=== PATIENT | female | born 1945 | race African-American/Black ===

== ENCOUNTER 2016-10-21 09:47 | Inpatient (IN) | payer MEDICAID, MEDICARE ==
[~2016-10-21] VITALS: Ht 170.2 cm; Wt 62.6 kg
[2016-10-21] VITALS (46 sets, daily range): BP systolic 75–140; BP diastolic 39–102
[~2016-10-21 09:47] MED LIST: AMIN30LI25 PO; AMLO10TA4 PO; ATOR10TA PO; CLON0.3P TD; CLOP75TA2 PO; DIVA500T2 PO; DOCU250C75 PO; FAMO20TA8 PO; GABA-532 PO; HYDR12.5 PO; MAGN400T6 PO; METF500T7 PO; METO50TA3 PO; MIRT15TA PO; NITR1OIN2 TD; POTA10CA43 PO; PSYL1PAC8 PO; VALS40TA4 PO
[2016-10-21 10:08] LABS: BASOPHILS % (AUTO) 0.6 % (0.0-2.0); DIFF TOTAL % 100 %; EOSINOPHILS # (AUTO) 0.1 /CMM (0.0-0.7); HEMATOCRIT 37 % (33-45); HEMOGLOBIN 12.1 g/dL (11.5-14.8); LYMPHOCYTES # (AUTO) 1.9 /CMM (0.8-4.8); LYMPHOCYTES % (AUTO) 49.3 % (20.0-44.0); MEAN CORPUSCULAR HEMOGLOBIN 27 PG (26.0-33.0); MEAN CORPUSCULAR HGB CONC 33 g/dl (31.0-36.0); MEAN CORPUSCULAR VOLUME 84 fL (82-100); MONOCYTES # (AUTO) 0.3 /CMM (0.1-1.30); MONOCYTES % (AUTO) 8.5 % (2.0-12.0); NEUTROPHILS # (AUTO) 1.6 /CMM (1.8-8.9); NEUTROPHILS % (AUTO) 39.6 % (43.0-81.0); PLATELET COUNT (AUTO) 194 /CMM (150-450); RED BLOOD CELL COUNT(AUTO) 4.42 MIL/uL (4.0-5.2); WHITE BLOOD COUNT (AUTO) 3.9 K/uL (4.3-11.0)
[2016-10-21] MEDS ORDERED: DOCU100T2 PO (10:08)
[2016-10-21] MEDS ORDERED: ZOLP5TAB2 PO (10:08)
[2016-10-21] MEDS ORDERED: MAG30ORA PO (10:08)
[2016-10-21] MEDS ORDERED: MAGN400O6 PO (10:08)
[2016-10-21] MEDS ORDERED: ALBU2.5V12 NEB (10:08)
[2016-10-21] MEDS ORDERED: DIVA125C PO (10:08)
[2016-10-21] MEDS ORDERED: ONDA4TAB5 PO (10:08)
[2016-10-21] MEDS ORDERED: LACT10SO PO (10:08)
[2016-10-21] MEDS ORDERED: BISA5TAB10 PO (10:08)
[2016-10-21] MEDS ORDERED: IPRA0.2S49 NEB (10:08)
[2016-10-21] MEDS ORDERED: RISP0.5T20 PO (10:08)
[2016-10-21] MEDS ORDERED: ACET-868 PO (10:08)
[2016-10-21] MEDS ORDERED: PALI234D IM (10:08)
[2016-10-21] MEDS ORDERED: BISA10SU8 RC (10:08)
[2016-10-21] MEDS ORDERED: CHOL10002 PO (10:08)
[2016-10-21] MEDS ORDERED: AMLO5TAB2 PO (10:08)
[2016-10-21] MEDS ORDERED: POLY17PO4 PO (10:08)
[2016-10-21] MEDS ORDERED: NA P133E RC (10:08)
[2016-10-21 10:15] LABS: CALCIUM, SERUM 9.1 mg/dL (8.5-10.1); CREATININE 0.8 mg/dL (0.6-1.3); POTASSIUM 4.8 mmol/L (3.5-5.1)
[2016-10-21 10:22] LABS: BILIRUBIN,TOTAL 0.3 mg/dL (0.2-1.0); INDIRECT BILIRUBIN 0.3 mg/dL (0.0-1.1); TOTAL PROTEIN, SERUM 7.4 g/dL (6.4-8.2)
[2016-10-21 10:23] LABS: TROPONIN I 0.108 ng/mL (0.00-0.056)
[2016-10-21 10:27] LABS: KETONES,URINE 15 (NEGATIVE); LEUKOCYTE ESTERASE ,URINE Small (NEGATIVE)
[2016-10-21 10:30] LABS: LACTIC ACID 1.8 mmol/L (0.4-2.0)
[2016-10-21 10:30] LABS: ADD UA MICROSCOPIC YES
[2016-10-21 10:33] LABS: ADD URINE CULTURE YES
[2016-10-21 10:40] LABS: INR 1.05 (0.87-1.13)
[2016-10-21] MEDS ORDERED: NITROGLYCERIN PACKET 1 GM PACKET ONE (10:59)
[2016-10-21] MEDS ORDERED: FUROSEMIDE 20 MG/2 ML VIAL ONE (10:59)
[2016-10-21] MEDS ORDERED: NITROGLYCERIN PACKET 1 GM PACKET TD ONE (11:00)
[2016-10-21] MEDS ORDERED: FUROSEMIDE 40 MG/4 ML VIAL IV ONE (11:00)
[2016-10-21 11:06] LABS: ABG BASE EXCESS 6.5 mmol/L; ABG HCO3 33.3 mmol/L; ABG PCO2 58.3 mmHg (35.0-45.0); ABG PH 7.375 (7.350-7.450); ABG TOTAL HEMOGLOBIN 12.7 G/dL (12.0-16.0); ALLEN TEST Pass; AaDO2 159.2 mmHg; O2Hb 87.3 % (94.0-97.0)
[2016-10-21] MEDS ORDERED: ONDANSETRON 4 MG TAB.RAPDIS PO PRN (11:30)
[2016-10-21] MEDS ORDERED: IPRATROPIUM NEB FS 0.5 MG/2.5 ML AMPUL.NEB NEB PRN (11:30)
[2016-10-21] MEDS ORDERED: MAGNESIUM HYDROXIDE 30 ML UDC PO PRN ×2 (11:30→16:00)
[2016-10-21] MEDS ORDERED: MAG HYDROX/AL HYDROX/SIMETH 30 ML UDC PO PRN ×2 (11:30→16:00)
[2016-10-21] MEDS ORDERED: CEFTRIAXONE 1GM BAG (ER ONLY) 1 GM/50 ML PIGGYBACK IV ONE (11:30)
[2016-10-21] MEDS ORDERED: ACETAMINOPHEN 325 MG TABLET PO PRN (11:30)
[2016-10-21] MEDS ORDERED: NA PHOS,M-B/NA PHOS,DI-BA 1 EA ENEMA RC PRN (11:30)
[2016-10-21] MEDS ORDERED: BISACODYL SUPP (10 MG) 10 MG/SUPP.RECT SUPP.RECT RC PRN (11:30)
[2016-10-21] MEDS ORDERED: CEFTRIAXONE 1GM BAG (ER ONLY) 50 ML IV ONE (11:40)
[2016-10-21] MEDS ORDERED: IV SET PRIMARY PUMP SET 1 EA INFUS.SET MC ONE ×2 (11:40→14:44)
[2016-10-21] MEDS ORDERED: LACTULOSE 10 G/15 ML UDC (PYXIS) PO PRN (12:00)
[2016-10-21] MEDS ORDERED: NITROGLYCERIN PACKET 1 GM PACKET TOP SCH (13:00)
[2016-10-21] MEDS: ALBUTEROL FS 2.5 MG/0.5 ML VIAL.NEB NEB SCH ×2 (14:23→20:08)
[2016-10-21] MEDS ORDERED: IV NS 0.9% 1,000 ML BAG IV PRN ×2 (14:30→15:00)
[2016-10-21] MEDS ORDERED: IV NS 0.9% 1,000 ML ONE (14:41)
[2016-10-21] MEDS ORDERED: SECONDARY IV SET 1 EA INFUS.SET MC ONE (14:45)
[2016-10-21] MEDS ORDERED: IV NS 0.9% 250 ML IV PRN (15:00)
[2016-10-21] MEDS ORDERED: IV NS 0.9% 500 ML IV ONE (15:00)
[2016-10-21] MEDS: IPRATROPIUM NEB FS 0.5 MG/2.5 ML AMPUL.NEB NEB SCH ×2 (15:00→20:09)
[2016-10-21] MEDS: ALBUTEROL HALF STRENGTH 1.25 MG/3 ML VIAL.NEB NEB SCH ×2 (15:00→19:30)
[2016-10-21 15:31] LABS: ABG BASE EXCESS 10.6 mmol/L; ABG HCO3 38.8 mmol/L; ABG PCO2 72.9 mmHg (35.0-45.0); ABG PH 7.344 (7.350-7.450); ABG PO2 88.2 mmHg (75.0-100.0); ABG TOTAL HEMOGLOBIN 11.7 G/dL (12.0-16.0); ALLEN TEST Pass; AaDO2 208.2 mmHg; O2Hb 92.8 % (94.0-97.0)
[2016-10-21] MEDS ORDERED: ONDANSETRON HCL/PF 4 MG/2 ML VIAL IVP PRN (16:00)
[2016-10-21] MEDS ORDERED: Z GUARD REMEDY 2 OZ OINT TP PRN (16:00)
[2016-10-21] MEDS ORDERED: HYDROCODONE/APAP 5/325MG 1 EACH TABLET PO PRN (16:00)
[2016-10-21] MEDS ORDERED: risperiDONE 0.25 MG TABLET PO SCH (17:00)
[2016-10-21] MEDS ORDERED: DOCUSATE SODIUM 100 MG CAPSULE PO SCH (17:00)
[2016-10-21] MEDS ORDERED: METOPROLOL TARTRATE 50 MG TABLET PO SCH (17:00)
[2016-10-21] MEDS: DIVALPROEX SODIUM 125 MG CAP.SPRINK PO SCH ×2 (17:00→17:33)
[2016-10-21] MEDS: methylPREDNISolone SOD SUCC 125 MG/2ML VIAL IV SCH (17:08)
[2016-10-21] MEDS: ENOXAPARIN SODIUM 40 MG/0.4 ML DISP.SYRIN SQ SCH (17:08)
[2016-10-21] MEDS ORDERED: LABETALOL HCL IV 100MG VIAL IV PRN (18:00)
[2016-10-21] MEDS ORDERED: ACETAMINOPHEN 650 MG/SUPP.RECT RC PRN (18:00)
[2016-10-21] MEDS ORDERED: IV NS 0.9% 250 ML IV ONE (20:17)
[2016-10-21] MEDS: FUROSEMIDE 40 MG/4 ML VIAL IV SCH (20:23)
[2016-10-21] MEDS: FAMOTIDINE/PF INJ 20 MG/2 ML VIAL IV SCH (20:23)
[2016-10-21] MEDS ORDERED: ATORVASTATIN 10 MG TABLET PO SCH (22:00)
[2016-10-21] MEDS ORDERED: MIRTAZAPINE 15 MG TABLET PO SCH (22:00)
[2016-10-21] MEDS ORDERED: FAMOTIDINE (20 MG) 20 MG TABLET PO SCH (22:00)
[2016-10-21] MEDS ORDERED: ZOLPIDEM TARTRATE 5 MG TABLET PO SCH (22:00)
[2016-10-21] MEDS ORDERED: GABAPENTIN 100 MG CAPSULE PO SCH (22:00)
[2016-10-22] VITALS (47 sets, daily range): BP systolic 80–148; BP diastolic 46–91
[2016-10-22] MEDS: ALBUTEROL HALF STRENGTH 1.25 MG/3 ML VIAL.NEB NEB SCH ×4 (01:30→20:06)
[2016-10-22] MEDS: ALBUTEROL FS 2.5 MG/0.5 ML VIAL.NEB NEB SCH ×4 (02:29→19:30)
[2016-10-22] MEDS: IPRATROPIUM NEB FS 0.5 MG/2.5 ML AMPUL.NEB NEB SCH ×4 (02:30→20:06)
[2016-10-22 04:52] LABS: BASOPHILS % (AUTO) 0.1 % (0.0-2.0); DIFF TOTAL % 100 %; HEMATOCRIT 36 % (33-45); HEMOGLOBIN 11.6 g/dL (11.5-14.8); LYMPHOCYTES # (AUTO) 0.8 /CMM (0.8-4.8); LYMPHOCYTES % (AUTO) 11.4 % (20.0-44.0); MEAN CORPUSCULAR HEMOGLOBIN 27 PG (26.0-33.0); MEAN CORPUSCULAR HGB CONC 32 g/dl (31.0-36.0); MEAN CORPUSCULAR VOLUME 85 fL (82-100); MONOCYTES # (AUTO) 0.1 /CMM (0.1-1.30); MONOCYTES % (AUTO) 1.4 % (2.0-12.0); NEUTROPHILS # (AUTO) 6.1 /CMM (1.8-8.9); NEUTROPHILS % (AUTO) 87.1 % (43.0-81.0); PLATELET COUNT (AUTO) 223 /CMM (150-450); WHITE BLOOD COUNT (AUTO) 7.1 K/uL (4.3-11.0)
[2016-10-22 05:20] LABS: CALCIUM, SERUM 8.9 mg/dL (8.5-10.1); CREATININE 1.6 mg/dL (0.6-1.3); PHOSPHORUS 5.6 mg/dL (2.5-4.9); POTASSIUM 4.5 mmol/L (3.5-5.1)
[2016-10-22] MEDS: FUROSEMIDE 40 MG/4 ML VIAL IV SCH (08:03)
[2016-10-22] MEDS: methylPREDNISolone SOD SUCC 125 MG/2ML VIAL IV SCH (08:03)
[2016-10-22] MEDS ORDERED: CHOLECALCIFEROL 1,000 UNIT TABLET (VIT D3) PO SCH (09:00)
[2016-10-22] MEDS ORDERED: BISACODYL (5 MG) 5 MG TABLET.DR PO SCH (09:00)
[2016-10-22] MEDS ORDERED: MAGNESIUM OXIDE 400 MG TABLET PO SCH (09:00)
[2016-10-22] MEDS ORDERED: ASPIRIN 325 MG TABLET PO SCH (09:00)
[2016-10-22] MEDS ORDERED: CLOPIDOGREL BISULFATE 75 MG TABLET PO SCH (09:00)
[2016-10-22] MEDS ORDERED: AMLODIPINE BESYLATE 5 MG TABLET PO SCH (09:00)
[2016-10-22] MEDS ORDERED: POLYETHYLENE GLYCOL 3350 17 GM POWD.PACK PO SCH (09:00)
[2016-10-22] MEDS ORDERED: SECONDARY IV SET 1 EA INFUS.SET MC ONE (09:37)
[2016-10-22] MEDS: Magnesium 1GM/D5W 100ML PREMIX 100 ML IV SCH ×4 (09:40→13:28)
[2016-10-22] MEDS: CEFTRIAXONE 1 G in IV D5W 50 ML IV SCH (10:38)
[2016-10-22] MEDS: IV NS 0.9% 1,000 ML IV PRN (13:59)
[2016-10-22] MEDS ORDERED: Magnesium 1GM/D5W 100ML PREMIX 100 ML IV SCH (14:00)
[2016-10-22] MEDS ORDERED: IV NS 0.9% 1,000 ML BAG IV PRN (14:00)
[2016-10-22] MEDS: FAMOTIDINE/PF INJ 20 MG/2 ML VIAL IV SCH (20:25)
[2016-10-22] MEDS: ENOXAPARIN SODIUM 40 MG/0.4 ML DISP.SYRIN SQ SCH (20:25)
[2016-10-23] VITALS (26 sets, daily range): BP systolic 100–181; BP diastolic 55–100
[2016-10-23] MEDS: ALBUTEROL FS 2.5 MG/0.5 ML VIAL.NEB NEB SCH ×4 (01:29→19:30)
[2016-10-23] MEDS: ALBUTEROL HALF STRENGTH 1.25 MG/3 ML VIAL.NEB NEB SCH ×4 (01:29→19:48)
[2016-10-23] MEDS: IPRATROPIUM NEB FS 0.5 MG/2.5 ML AMPUL.NEB NEB SCH ×4 (01:29→19:48)
[2016-10-23] MEDS: IV NS 0.9% 1,000 ML IV PRN ×2 (05:04→18:11)
[2016-10-23] MEDS: methylPREDNISolone SOD SUCC 125 MG/2ML VIAL IV SCH (08:36)
[2016-10-23] MEDS: CEFTRIAXONE 1 G in IV D5W 50 ML IV SCH (10:01)
[2016-10-23] MEDS: FAMOTIDINE/PF INJ 20 MG/2 ML VIAL IV SCH (20:10)
[2016-10-23] MEDS: ENOXAPARIN SODIUM 40 MG/0.4 ML DISP.SYRIN SQ SCH (20:10)
[2016-10-24] VITALS (21 sets, daily range): BP systolic 143–177; BP diastolic 81–138
[2016-10-24] MEDS: ALBUTEROL FS 2.5 MG/0.5 ML VIAL.NEB NEB SCH ×4 (01:30→20:00)
[2016-10-24] MEDS: ALBUTEROL HALF STRENGTH 1.25 MG/3 ML VIAL.NEB NEB SCH ×4 (01:41→20:12)
[2016-10-24] MEDS: IPRATROPIUM NEB FS 0.5 MG/2.5 ML AMPUL.NEB NEB SCH ×4 (01:41→20:00)
[2016-10-24 05:05] LABS: BASOPHILS % (AUTO) 0.1 % (0.0-2.0); DIFF TOTAL % 100 %; EOSINOPHILS % (AUTO) 0.3 % (0.0-6.0); HEMATOCRIT 36 % (33-45); LYMPHOCYTES # (AUTO) 2.1 /CMM (0.8-4.8); MEAN CORPUSCULAR HEMOGLOBIN 27 PG (26.0-33.0); MEAN CORPUSCULAR HGB CONC 31 g/dl (31.0-36.0); MEAN CORPUSCULAR VOLUME 86 fL (82-100); MONOCYTES # (AUTO) 0.7 /CMM (0.1-1.30); MONOCYTES % (AUTO) 7.3 % (2.0-12.0); NEUTROPHILS # (AUTO) 6.4 /CMM (1.8-8.9); NEUTROPHILS % (AUTO) 69.3 % (43.0-81.0); PLATELET COUNT (AUTO) 205 /CMM (150-450); RED BLOOD CELL COUNT(AUTO) 4.15 MIL/uL (4.0-5.2); WHITE BLOOD COUNT (AUTO) 9.3 K/uL (4.3-11.0)
[2016-10-24 05:11] LABS: CALCIUM, SERUM 8.8 mg/dL (8.5-10.1); POTASSIUM 4.1 mmol/L (3.5-5.1)
[2016-10-24] MEDS ORDERED: IV SET PRIMARY PUMP SET 1 EA INFUS.SET MC ONE (05:44)
[2016-10-24] MEDS: IV NS 0.9% 1,000 ML IV PRN ×2 (05:50→20:03)
[2016-10-24] MEDS: methylPREDNISolone SOD SUCC 125 MG/2ML VIAL IV SCH (09:31)
[2016-10-24] MEDS: CEFTRIAXONE 1 G in IV D5W 50 ML IV SCH (09:31)
[2016-10-24] MEDS ORDERED: CLONIDINE HCL 0.3 MG/24H PTWK 1 EA PATCH TD SCH (11:30)
[2016-10-24] MEDS: AZITHROMYCIN 500 MG in IV D5W 250 ML IV SCH (20:02)
[2016-10-24] MEDS: ENOXAPARIN SODIUM 40 MG/0.4 ML DISP.SYRIN SQ SCH (20:05)
[2016-10-24] MEDS: FAMOTIDINE/PF INJ 20 MG/2 ML VIAL IV SCH (20:25)
[2016-10-25] VITALS (8 sets, daily range): BP systolic 134–165; BP diastolic 69–94
[2016-10-25] MEDS: ALBUTEROL FS 2.5 MG/0.5 ML VIAL.NEB NEB SCH ×2 (01:30→20:06)
[2016-10-25] MEDS: IPRATROPIUM NEB FS 0.5 MG/2.5 ML AMPUL.NEB NEB SCH ×4 (01:30→20:06)
[2016-10-25] MEDS: ALBUTEROL HALF STRENGTH 1.25 MG/3 ML VIAL.NEB NEB SCH ×3 (01:30→12:39)
[2016-10-25] MEDS: CEFTRIAXONE 1 G in IV D5W 50 ML IV SCH (10:37)
[2016-10-25] MEDS: methylPREDNISolone SOD SUCC 125 MG/2ML VIAL IV SCH (10:37)
[2016-10-25] MEDS ORDERED: SECONDARY IV SET 1 EA INFUS.SET MC ONE (10:38)
[2016-10-25 17:53] LABS: ABG BASE EXCESS 7.6 mmol/L; ABG HCO3 34.3 mmol/L; ABG PCO2 58.7 mmHg (35.0-45.0); ABG PH 7.385 (7.350-7.450); ABG PO2 91.5 mmHg (75.0-100.0); ALLEN TEST Pass; AaDO2 53.4 mmHg; O2Hb 94.3 % (94.0-97.0)
[2016-10-25 18:58] LABS: BASOPHILS % (AUTO) 0.1 % (0.0-2.0); DIFF TOTAL % 100 %; HEMATOCRIT 36 % (33-45); HEMOGLOBIN 11.6 g/dL (11.5-14.8); LYMPHOCYTES # (AUTO) 0.6 /CMM (0.8-4.8); LYMPHOCYTES % (AUTO) 12.5 % (20.0-44.0); MEAN CORPUSCULAR HEMOGLOBIN 27 PG (26.0-33.0); MEAN CORPUSCULAR HGB CONC 32 g/dl (31.0-36.0); MEAN CORPUSCULAR VOLUME 84 fL (82-100); MONOCYTES # (AUTO) 0.1 /CMM (0.1-1.30); MONOCYTES % (AUTO) 1.6 % (2.0-12.0); NEUTROPHILS # (AUTO) 4.3 /CMM (1.8-8.9); NEUTROPHILS % (AUTO) 85.8 % (43.0-81.0); PLATELET COUNT (AUTO) 188 /CMM (150-450)
[2016-10-25 19:23] LABS: ALBUMIN 2.9 g/dL (3.4-5.0); BILIRUBIN,TOTAL 0.2 mg/dL (0.2-1.0); CALCIUM, SERUM 8.8 mg/dL (8.5-10.1); CREATININE 0.9 mg/dL (0.6-1.3); POTASSIUM 4.7 mmol/L (3.5-5.1); TOTAL PROTEIN, SERUM 7.1 g/dL (6.4-8.2)
[2016-10-25 19:44] LABS: LACTIC ACID 0.9 mmol/L (0.4-2.0)
[2016-10-25] MEDS: AZITHROMYCIN 500 MG in IV D5W 250 ML IV SCH (20:56)
[2016-10-25] MEDS: FAMOTIDINE/PF INJ 20 MG/2 ML VIAL IV SCH (20:57)
[2016-10-25] MEDS: ENOXAPARIN SODIUM 40 MG/0.4 ML DISP.SYRIN SQ SCH (20:58)
[2016-10-26] VITALS: BP_SYST 156; BP_DIAS 100; BP_DIAS 90
[2016-10-26] MEDS: ALBUTEROL FS 2.5 MG/0.5 ML VIAL.NEB NEB SCH ×3 (01:44→13:30)
[2016-10-26] MEDS: IPRATROPIUM NEB FS 0.5 MG/2.5 ML AMPUL.NEB NEB SCH ×4 (01:44→20:28)
[2016-10-26 04:00] VITALS: BP_SYST 154; BP_SYST 155; BP_DIAS 101; BP_DIAS 87
[2016-10-26 08:00] VITALS: BP 172/89
[2016-10-26] MEDS: ALBUTEROL HALF STRENGTH 1.25 MG/3 ML VIAL.NEB NEB SCH ×3 (08:25→20:28)
[2016-10-26] MEDS: methylPREDNISolone SOD SUCC 125 MG/2ML VIAL IV SCH (09:00)
[2016-10-26] MEDS: CEFTRIAXONE 1 G in IV D5W 50 ML IV SCH (11:16)
[2016-10-26 12:00] VITALS: BP 143/79
[2016-10-26 16:00] VITALS: BP 149/82
[2016-10-26] MEDS ORDERED: DEXTROSE 50%-WATER 50 ML DISP.SYRIN IV PRN (17:00)
[2016-10-26] MEDS ORDERED: CLONIDINE HCL 0.1MG/24H PTWK 1 EA PATCH TD SCH (17:00)
[2016-10-26] MEDS: BLOOD SUGAR DIAGNOSTIC 1 EACH STRIP IN SCH ×2 (18:01→23:00)
[2016-10-26] MEDS: INSULIN ASPART NOVOLOG 100 UNIT/ML CARTRIDGE SQ PRN ×2 (18:46→23:04)
[2016-10-26 20:00] VITALS: BP 137/79
[2016-10-26] MEDS: AZITHROMYCIN 500 MG in IV D5W 250 ML IV SCH (21:01)
[2016-10-26] MEDS: FAMOTIDINE/PF INJ 20 MG/2 ML VIAL IV SCH (21:03)
[2016-10-26] MEDS: ENOXAPARIN SODIUM 40 MG/0.4 ML DISP.SYRIN SQ SCH (21:13)
[2016-10-27] VITALS: BP_SYST 166; BP_SYST 171; BP_DIAS 88; BP_DIAS 94
[2016-10-27] MEDS: ALBUTEROL HALF STRENGTH 1.25 MG/3 ML VIAL.NEB NEB SCH ×4 (02:27→19:29)
[2016-10-27] MEDS: IPRATROPIUM NEB FS 0.5 MG/2.5 ML AMPUL.NEB NEB SCH ×4 (02:27→19:28)
[2016-10-27 04:00] VITALS: BP 125/83
[2016-10-27] MEDS ORDERED: IV NS 0.9% 250 ML IV ONE (04:38)
[2016-10-27] MEDS ORDERED: IV NS 0.9% 250 ML IV PRN (05:00)
[2016-10-27] MEDS: BLOOD SUGAR DIAGNOSTIC 1 EACH STRIP IN SCH ×4 (05:32→22:13)
[2016-10-27 08:00] VITALS: BP 143/79
[2016-10-27] MEDS: methylPREDNISolone SOD SUCC 125 MG/2ML VIAL IV SCH (08:36)
[2016-10-27] MEDS: CEFTRIAXONE 1 G in IV D5W 50 ML IV SCH (11:11)
[2016-10-27] MEDS: INSULIN ASPART NOVOLOG 100 UNIT/ML CARTRIDGE SQ PRN ×2 (11:42→22:15)
[2016-10-27 16:00] VITALS: BP 145/70
[2016-10-27 20:00] VITALS: BP 170/98
[2016-10-27] MEDS: AZITHROMYCIN 500 MG in IV D5W 250 ML IV SCH (20:15)
[2016-10-27] MEDS: FAMOTIDINE/PF INJ 20 MG/2 ML VIAL IV SCH (20:15)
[2016-10-27] MEDS ORDERED: CLONIDINE HCL 0.1MG/24H PTWK 1 EA PATCH TD ONE (20:18)
[2016-10-27] MEDS: ENOXAPARIN SODIUM 40 MG/0.4 ML DISP.SYRIN SQ SCH (20:26)
[2016-10-27] MEDS ORDERED: CLONIDINE HCL 0.1MG/24H PTWK 1 EA PATCH TD SCH (20:30)
[2016-10-28] MEDS: ALBUTEROL HALF STRENGTH 1.25 MG/3 ML VIAL.NEB NEB SCH ×4 (01:03→20:16)
[2016-10-28] MEDS: IPRATROPIUM NEB FS 0.5 MG/2.5 ML AMPUL.NEB NEB SCH ×4 (01:03→20:16)
[2016-10-28] MEDS: BLOOD SUGAR DIAGNOSTIC 1 EACH STRIP IN SCH ×4 (07:30→22:03)
[2016-10-28 08:00] VITALS: BP 166/96
[2016-10-28] MEDS: methylPREDNISolone SOD SUCC 125 MG/2ML VIAL IV SCH (08:23)
[2016-10-28] MEDS: CEFTRIAXONE 1 G in IV D5W 50 ML IV SCH (10:07)
[2016-10-28] MEDS: INSULIN ASPART NOVOLOG 100 UNIT/ML CARTRIDGE SQ PRN ×2 (17:18→22:07)
[2016-10-28 20:00] VITALS: BP 135/77
[2016-10-28] MEDS ORDERED: SECONDARY IV SET 1 EA INFUS.SET MC ONE (20:19)
[2016-10-28] MEDS: AZITHROMYCIN 500 MG in IV D5W 250 ML IV SCH (20:24)
[2016-10-28] MEDS: FAMOTIDINE/PF INJ 20 MG/2 ML VIAL IV SCH (20:25)
[2016-10-28] MEDS: ENOXAPARIN SODIUM 40 MG/0.4 ML DISP.SYRIN SQ SCH (20:31)
[2016-10-28] MEDS ORDERED: IV NS 0.9% 250 ML IV ONE (20:42)
[2016-10-28] MEDS ORDERED: IV SET PRIMARY PUMP SET 1 EA INFUS.SET MC ONE (20:42)
[2016-10-28 22:17] VITALS: BP 120/70
[2016-10-29] MEDS: IPRATROPIUM NEB FS 0.5 MG/2.5 ML AMPUL.NEB NEB SCH ×3 (00:21→13:18)
[2016-10-29] MEDS: ALBUTEROL HALF STRENGTH 1.25 MG/3 ML VIAL.NEB NEB SCH ×3 (00:21→13:18)
[2016-10-29] MEDS: BLOOD SUGAR DIAGNOSTIC 1 EACH STRIP IN SCH ×2 (06:31→11:55)
[2016-10-29 08:00] VITALS: BP 138/73
[2016-10-29 08:21] VITALS: BP 138/73
[2016-10-29] MEDS ORDERED: methylPREDNISolone SOD SUCC 125 MG/2ML VIAL IV SCH (09:00)
[2016-10-29] MEDS ORDERED: IV NS 0.9% 250 ML IV ONE (10:52)
[2016-10-29] MEDS: CEFTRIAXONE 1 G in IV D5W 50 ML IV SCH (10:57)
[2016-10-29] MEDS: INSULIN ASPART NOVOLOG 100 UNIT/ML CARTRIDGE SQ PRN (11:56)
[2016-10-29 16:00] VITALS: BP 151/71
[2016-10-29 16:18] VITALS: BP 151/71
== END 2016-10-29 16:56 | DRG 871 ==
LOC: ER 09:49 → ICU 12:12 → TELE1 10-24 11:57 → MEDSG1 10-27 11:24 → MED 10-28 21:59
PROVIDERS: ADMIT Internal Medicine; ATTEND Internal Medicine
DX: A41.9 Sepsis, unspecified organism (principal); J69.0 Pneumonitis due to inhalation of food and vomit; I21.4 Non-ST elevation (NSTEMI) myocardial infarction; G92 Toxic encephalopathy; I50.33 Acute on chronic diastolic (congestive) heart failure; J96.21 Acute and chronic respiratory failure with hypoxia; J96.22 Acute and chronic respiratory failure with hypercapnia; R65.21 Severe sepsis with septic shock; F32.3 Major depressive disorder, single episode, severe with psychotic features; E44.0 Moderate protein-calorie malnutrition; N17.9 Acute kidney failure, unspecified; I25.10 Atherosclerotic heart disease of native coronary artery without angina pectoris; J44.9 Chronic obstructive pulmonary disease, unspecified; I10 Essential (primary) hypertension; F02.80 Dementia in other diseases classified elsewhere, unspecified severity, without behavioral disturbance, psychotic disturbance, mood disturbance, and anxiety; E11.65 Type 2 diabetes mellitus with hyperglycemia; Z68.21 Body mass index [BMI] 21.0-21.9, adult; T38.0X5A Adverse effect of glucocorticoids and synthetic analogues, initial encounter; J06.9 Acute upper respiratory infection, unspecified
CPT/HCPCS: 31720; 36415; 36600; 70450-TC; 71010-TC; 80048-TC; 80053-TC; 80061-TC; 80076-TC; 81000-TC; 82140-TC; 82533; 82962-TC; 83605-TC; 83735-TC; 84100-TC; 84443-TC; 84484-TC; 85025-TC; 85730-TC; 87040-TC; 87081-TC; 87086-TC; 92611-TC; 93307-TC; 94003-TC; 94760-TC; 94799-TC; A4606; J0456; J0696; J1650; J1815; J1940; J2930; J3475; J3490; J7030; J7050; J7060; Z7610